=== PATIENT | female | born 1960 ===

== ENCOUNTER 2024-03-30 05:20 | Day surgery (SDC) | payer OTHER ==
[2024-03-27 13:26] VITALS: BP 120/79
[~2024-03-30] VITALS: Ht 162.6 cm; Wt 59.0 kg
[~2024-03-30 05:20] MED LIST: ADRENAL COMPLEX; ALPHA LIPOIC A600 MG; DHA ALGAL-900300 MG; GALZIN25 MG PO; GLUTAMINE; MAGNESIUM100 MG; NAC600 MG PO; PROBIOTIC1 EAC8 PO; SELENIUM200 MC2 PO; VITAMIN C100 MG; [UNRECOGNIZED DRUG - OTHER]
[2024-03-30] MEDS ORDERED: RINGERS SOLUTION,LACTATED 1,000 ML IV SCH (08:45)
[2024-03-30] MEDS ORDERED: POVIDONE-IODINE 118 ML BOTT TOP ONE (08:45)
[2024-03-30] MEDS ORDERED: KETOROLAC TROMETHAMINE 30 MG VIAL IV ONE (08:45)
== END 2024-03-30 13:15 | disposition home or self-care (01) ==
LOC: CIR.AMB 05:20
PROVIDERS: ATTEND Student in an Organized Health Care Education/Training Program
DX: N84.0 Polyp of corpus uteri (principal); N72 Inflammatory disease of cervix uteri; N95.0 Postmenopausal bleeding; K76.0 Fatty (change of) liver, not elsewhere classified; K21.9 Gastro-esophageal reflux disease without esophagitis; H52.10 Myopia, unspecified eye